=== PATIENT | male | born 1965 | race African-American/Black ===

== ENCOUNTER 2019-05-24 00:23 | Emergency (ER) | payer SELFPAY ==
[~2019-05-24] VITALS: Ht 175.3 cm; Wt 93.4 kg
[2019-05-24] VITALS (8 sets, daily range): BP systolic 148–163; BP diastolic 88–98
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
[2019-05-24 01:02] LABS: BASOPHILS % (AUTO) 1.6 % (0.0-2.0); EOSINOPHILS % (AUTO) 1.7 % (0.0-3.0); HEMATOCRIT 38.9 % (42.0-52.0); HEMOGLOBIN 12.7 G/DL (14.2-18.0); LYMPHOCYTES % (AUTO) 19.1 % (20.0-45.0); MEAN CORPUSCULAR VOLUME 83 FL (80-99); MONOCYTES % (AUTO) 12.2 % (1.0-10.0); NEUTROPHILS % (AUTO) 65.4 % (45.0-75.0); PLATELET COUNT 366 K/UL (150-450); RED BLOOD COUNT 4.66 M/UL (4.70-6.10); RED CELL DISTRIBUTION WIDTH 11.9 % (11.6-14.8); WHITE BLOOD COUNT 5.3 K/UL (4.8-10.8)
[2019-05-24 01:03] LABS: APPEARANCE,URINE CLEAR; BILIRUBIN, URINE NEGATIVE (NEGATIVE); COLOR,URINE PALE YELLOW; GLUCOSE, URINE (UA) NEGATIVE (NEGATIVE); KETONES,URINE NEGATIVE (NEGATIVE); LEUKOCYTE ESTERASE ,URINE NEGATIVE (NEGATIVE); NITRITE,URINE NEGATIVE (NEGATIVE); PH,URINE 7 (4.5-8.0); PROTEIN,URINE NEGATIVE (NEGATIVE); UROBILINOGEN,URINE NORMAL MG/DL (0.0-1.0)
--- NOTE | 2019-05-24 01:05 | NUR ---
To head CT.
[2019-05-24 01:14] LABS: ANION GAP 6 mmol/L (5-15); BLOOD UREA NITROGEN 13 mg/dL (7-18); CALCIUM 8.5 MG/DL (8.5-10.1); CARBON DIOXIDE 29 MMOL/L (21-32); CHLORIDE 106 MMOL/L (98-107); CREATININE 1.2 MG/DL (0.55-1.30); POTASSIUM 3.8 MMOL/L (3.5-5.1); SODIUM 141 MMOL/L (136-145)
--- NOTE | 2019-05-24 01:24 | NUR ---
ED Nurse Note: Ct done, blood and urine sent to lab.
[2019-05-24 01:29] LABS: ALANINE AMINOTRANSFERASE 51 U/L (12-78); ALBUMIN 3.1 G/DL (3.4-5.0); ALBUMIN/GLOBULIN RATIO 0.9 (1.0-2.7); ALKALINE PHOSPHATASE 67 U/L (46-116); ASPARTATE AMINO TRANSFERASE 32 U/L (15-37); BILIRUBIN,TOTAL 0.2 MG/DL (0.2-1.0); CKMB 7.6 NG/ML (0.0-3.6); CREATINE KINASE 611 U/L (26-308)
--- NOTE | 2019-05-24 02:00 | NUR ---
ED Nurse Note: Pt in bed, resting well with no sign of distress. Pt on room air and groundwater monitoring technician.
--- NOTE | 2019-05-24 02:17 | Diagnostic Imaging Report ---
Indication: Headache Technique: Contiguous 5 mm thick transaxial imaging of the head obtained in a Siemens Sensation [address] scanner. Soft tissue and bone windows generated. Automatic Exposure Control was utilized. Total Dose length Product (DLP): [address] Dose Index Volume (CTDIvol): 88.8 mGy Comparison: none Findings: The size and configuration of the cortical sulci, basal cisterns, and ventricles are within normal limits for age. There is no mass effect, midline shift, or edema identified. There is no evidence of acute hemorrhage or abnormal intra-axial or extra-axial fluid collections. The bones and soft tissues are unremarkable. There is mucosal thickening within the paranasal sinuses presumably due to sinusitis. Correlate clinically. There is evidence of an old fracture of the right medial orbital wall. Impression: No mass effect, edema or acute bleed. Sinusitis [facility] has communicated the preliminary results to the Emergency Department. Their findings are largely concordant with this report. The CT scanner at [facility] is accredited by the [employer] [employer] and the scans are performed using dose optimization techniques as appropriate to a performed exam including Automatic Exposure control.
--- NOTE | 2019-05-24 03:30 | NUR ---
ED Nurse Note: Pt is stable and resting well. BP 163/92, and HR 88 Charge nurse notified.
--- NOTE | 2019-05-24 03:39 | NUR ---
ED Nurse Note: Pt is resting with no signs of distress.
--- NOTE | 2019-05-24 03:53 | NUR ---
ED Nurse Note: Chest X-ray completed.
--- NOTE | 2019-05-24 04:44 | NUR ---
ED Nurse Note: Pt VSS with no acute distress. Pt on room air, alseep, and on security monitor.
--- NOTE | 2019-05-24 05:49 | NUR ---
ED Nurse Note: Pt resting well with no sign of distress. Blood draw sent ot lab.
[2019-05-24 06:27] LABS: CKMB 5.9 NG/ML (0.0-3.6)
--- NOTE | 2019-05-24 07:10 | NUR ---
HAND-OFF: Report given to MARY Mcclelland. Pt is stable and resting in bed.
--- NOTE | 2019-05-24 07:11 | NUR ---
ED Nurse Note: Patient is asleep in bed with his eyes closed, on a monitor technician, vitals stable, see flowsheet.
--- NOTE | 2019-05-24 11:07 | Diagnostic Imaging Report ---
Indication: Chest pain Comparison: None A single view chest radiograph was obtained. Findings: Cardiomediastinal appearance is within normal limits for age. The lungs are clear. Pulmonary vascularity is appropriate. The diaphragmatic contour is smooth and costophrenic angles are sharp. No pleural effusions are identified. The bones are unremarkable. Impression: No acute findings
[2019-05-24] MEDS ORDERED: Ammonia Inhalant 0.33mL 1 Amp INH ONE ×3 (13:35→14:45)
--- NOTE | 2019-05-24 14:20 | NUR ---
ED Nurse Note: Received verbal order from Dr. Rushing for ammonia inhalant
--- NOTE | 2019-05-24 14:25 | NUR ---
ED Nurse Note: Patient is able to make conversations with staff, attempted to try and check pupils, patient is forcibly closing his eyes
--- NOTE | 2019-05-24 15:05 | NUR ---
HAND-OFF: Report given to JORGE Ulloa RN. DR JOHNSON at bedside.
--- NOTE | 2019-05-24 15:10 | NUR ---
ED Nurse Note: Received report from MARY Mcclelland. Per Dr. Batista, patient is to be dced when fully awake, patient was given sandwich and was able to respond to staff.
--- NOTE | 2019-05-24 16:35 | NUR ---
ED Nurse Note: Patient sleeping calmly in bed
--- NOTE | 2019-05-24 17:15 | NUR ---
ER DISCHARGE NOTE: Patient is cleared to be discharged per ERMD, pt is aox4, on room air, with stable vital signs. pt was given instructions, pt was able to verbalize understanding, pt id band and iv site removed without complications. pt is able to ambulate with steady gait. pt took all belongings.
--- NOTE | 2019-05-26 15:22 | Cardiology Report ---
APPROVED REPORT EKG Measurement Heart [id number] Suspect arm lead reversal, interpretation assumes no reversal Normal sinus rhythm Rightward axis Borderline ECG
== END 2019-05-24 17:15 | disposition home or self-care (01) ==
LOC: EDBD 00:38 → EMR 00:38
DX: R41.82 Altered mental status, unspecified (principal); R07.9 Chest pain, unspecified
CPT/HCPCS: 36415; 70450; 71045; 80053; 80307; 81003; 82550; 82553; 83605; 83690; 84484; 85025; 93005; 96360; 96361; 99284; G0480; 80329